=== PATIENT | female | born 1950 | race Caucasian/White ===

== ENCOUNTER → 2017-09-23 15:29 | Outpatient (CLI) | payer MEDICARE, OTHER, SELFPAY ==
[2017-09-23 15:55] LABS: INR 3.5 (0.9-1.3); Prothrombin Time 37.4 SECONDS (10.1-12.7)
== END ==
PROVIDERS: PCP Family Medicine; Visit Provider Family Medicine
DX: Z51.81 Encounter for therapeutic drug level monitoring (principal)
CPT/HCPCS: 36415; 85610

== ENCOUNTER → 2017-10-15 12:48 | Outpatient (CLI) | payer MEDICARE, OTHER, SELFPAY ==
[2017-10-15 13:16] LABS: INR 3.4 (0.9-1.3); Prothrombin Time 36.2 SECONDS (10.1-12.7)
== END ==
PROVIDERS: PCP Family Medicine; Visit Provider Family Medicine
DX: Z51.81 Encounter for therapeutic drug level monitoring (principal); Z79.01 Long term (current) use of anticoagulants
CPT/HCPCS: 36415; 85610

== ENCOUNTER → 2017-11-07 09:15 | Outpatient (CLI) | payer MEDICARE, OTHER, SELFPAY ==
[2017-11-07 10:52] LABS: INR 2.4 (0.9-1.3); Prothrombin Time 27.1 SECONDS (10.1-12.7)
== END ==
PROVIDERS: PCP Family Medicine; Visit Provider Family Medicine
DX: Z51.81 Encounter for therapeutic drug level monitoring (principal)
CPT/HCPCS: 36415; 85610

== ENCOUNTER → 2018-02-06 09:25 | Outpatient (CLI) | payer MEDICARE, OTHER, SELFPAY ==
[2018-02-06 10:19] LABS: INR 2.8 (0.9-1.3); Prothrombin Time 30.8 SECONDS (10.1-12.7)
== END ==
PROVIDERS: PCP Family Medicine; Visit Provider Family Medicine
DX: Z51.81 Encounter for therapeutic drug level monitoring (principal)
CPT/HCPCS: 36415; 85610

== ENCOUNTER → 2018-03-15 09:35 | Outpatient (CLI) | payer MEDICARE, OTHER, SELFPAY ==
--- NOTE | 2018-03-15 | DI.MG.S_ITS ---
BILATERAL DIGITAL SCREENING MAMMOGRAM 3D/2D WITH CAD: 03/15/2018 CLINICAL: Routine screening. Comparison is made to exams dated: 12/23/2016 mammogram, 10/10/2015 mammogram, and 09/17/2014 mammogram - [facility]. There are scattered fibroglandular elements in both breasts. Current study was also evaluated with a Computer Aided Detection (CAD) system. No significant masses, calcifications, or other findings are seen in either breast. There has been no significant interval change. IMPRESSION: NEGATIVE There is no mammographic evidence of malignancy. A 1 year screening mammogram is recommended. This exam was interpreted at Station ID: [id number]. NOTE: For mammograms, a report in lay terms will be sent to the patient. Approximately 15% of breast malignancies will not be visualized mammographically. In the management of a palpable breast mass, a negative mammogram must not discourage biopsy of a clinically suspicious lesion. Electronically Signed By: Omar wolff/shamar:03/15/2018 11:43:26 letter sent: Normal Exam ACR BI-RADS Category 1: Negative 3341F
[2018-03-15 12:14] LABS: Prothrombin Time 60.6 SECONDS (10.1-12.7)
[2018-03-15 12:37] LABS: INR 5.1 (0.9-1.3)
== END ==
PROVIDERS: PCP Family Medicine; Visit Provider Family Medicine
DX: Z12.31 Encounter for screening mammogram for malignant neoplasm of breast (principal); Z51.81 Encounter for therapeutic drug level monitoring
CPT/HCPCS: 36415; 77063; 77067; 85610

== ENCOUNTER → 2018-04-27 11:03 | Outpatient (CLI) | payer MEDICARE, OTHER, SELFPAY ==
[2018-04-27 11:32] LABS: Prothrombin Time 23.5 SECONDS (10.1-12.7)
== END ==
PROVIDERS: PCP Family Medicine; Visit Provider Family Medicine
DX: Z51.81 Encounter for therapeutic drug level monitoring (principal)
CPT/HCPCS: 36415; 85610

== ENCOUNTER → 2018-05-25 14:51 | Outpatient (CLI) | payer MEDICARE, OTHER, SELFPAY ==
[2018-05-25 15:34] LABS: INR 3.8 (0.9-1.3); Prothrombin Time 45.1 SECONDS (10.1-12.7)
== END ==
PROVIDERS: PCP Family Medicine; Visit Provider Family Medicine
DX: Z51.81 Encounter for therapeutic drug level monitoring (principal)
CPT/HCPCS: 36415; 85610

== ENCOUNTER → 2018-06-29 11:22 | Outpatient (CLI) | payer MEDICARE, OTHER, SELFPAY ==
[2018-06-29 12:58] LABS: INR 2.6 (0.9-1.3); Prothrombin Time 30.4 SECONDS (10.1-12.7)
== END ==
PROVIDERS: Family Provider Internal Medicine Endocrinology, Diabetes & Metabolism; PCP Family Medicine; Visit Provider Family Medicine
DX: Z51.81 Encounter for therapeutic drug level monitoring (principal)
CPT/HCPCS: 36415; 85610

== ENCOUNTER → 2018-07-25 11:04 | Outpatient (CLI) | payer MEDICARE, OTHER, SELFPAY ==
[2018-07-25 12:08] LABS: INR 2.3 (0.9-1.3); Prothrombin Time 26.9 SECONDS (10.1-12.7)
== END ==
PROVIDERS: PCP Family Medicine; Visit Provider Family Medicine
DX: Z51.81 Encounter for therapeutic drug level monitoring (principal)
CPT/HCPCS: 36415; 85610

== ENCOUNTER → 2018-09-07 09:07 | Outpatient (CLI) | payer MEDICARE, OTHER, SELFPAY ==
[2018-09-07 10:00] LABS: INR 3.6 (0.9-1.3); Prothrombin Time 42.8 SECONDS (10.1-12.7)
== END ==
PROVIDERS: PCP Family Medicine; Visit Provider Family Medicine
DX: Z51.81 Encounter for therapeutic drug level monitoring (principal)
CPT/HCPCS: 36415; 85610

== ENCOUNTER → 2018-09-25 10:35 | Outpatient (CLI) | payer MEDICARE, OTHER, SELFPAY ==
[2018-09-25 11:57] LABS: INR 3.3 (0.9-1.3); Prothrombin Time 39.7 SECONDS (10.1-12.7)
== END ==
PROVIDERS: PCP Family Medicine; Visit Provider Family Medicine
DX: Z51.81 Encounter for therapeutic drug level monitoring (principal)
CPT/HCPCS: 36415; 85610

== ENCOUNTER → 2018-10-17 08:51 | Outpatient (CLI) | payer MEDICARE, OTHER, SELFPAY ==
[2018-10-17 09:25] LABS: INR 2.6 (0.9-1.3); Prothrombin Time 30.9 SECONDS (10.1-12.7)
== END ==
PROVIDERS: PCP Family Medicine; Visit Provider Family Medicine
DX: Z51.81 Encounter for therapeutic drug level monitoring (principal)
CPT/HCPCS: 36415; 85610

== ENCOUNTER → 2018-11-20 10:29 | Outpatient (CLI) | payer MEDICARE, OTHER, SELFPAY ==
[2018-11-20 11:16] LABS: INR 3.2 (0.9-1.3); Prothrombin Time 37.3 SECONDS (10.1-12.7)
[2018-11-20 11:21] LABS: BUN Creatinine Ratio 22.5 (6-22); Blood Urea Nitrogen 18 mg/dL (7-17); Calcium 10.5 mg/dL (8.4-10.2); Carbon Dioxide 22 mmol/L (22-32); Chloride 110 mmol/L (98-107); Estimated Glomerular Filt Rate > 60.0 mL/min (>60); Glucose 145 mg/dL (80-110); HEMOLYSIS < 15 (0-50); Sodium 143 mmol/L (137-145)
== END ==
PROVIDERS: Family Provider Family Medicine; PCP Family Medicine; Visit Provider Internal Medicine Endocrinology, Diabetes & Metabolism
DX: Z51.81 Encounter for therapeutic drug level monitoring (principal); E87.5 Hyperkalemia
CPT/HCPCS: 36415; 80048; 85610

== ENCOUNTER → 2018-12-21 09:51 | Outpatient (CLI) | payer MEDICARE, OTHER, SELFPAY ==
[2018-12-21 10:28] LABS: INR 3.6 (0.9-1.3); Prothrombin Time 42.2 SECONDS (10.1-12.7)
== END ==
PROVIDERS: PCP Family Medicine; Visit Provider Family Medicine
DX: Z51.81 Encounter for therapeutic drug level monitoring (principal)
CPT/HCPCS: 36415; 85610

== ENCOUNTER → 2019-01-26 14:30 | Outpatient (CLI) | payer MEDICARE, OTHER, SELFPAY ==
[2019-01-26 15:17] LABS: INR 3.7 (0.9-1.3); Prothrombin Time 43.2 SECONDS (10.1-12.7)
== END ==
PROVIDERS: PCP Family Medicine; Visit Provider Family Medicine
DX: Z51.81 Encounter for therapeutic drug level monitoring (principal); R79.1 Abnormal coagulation profile
CPT/HCPCS: 36415; 85610

== ENCOUNTER → 2019-02-12 10:06 | Outpatient (CLI) | payer MEDICARE, OTHER, SELFPAY ==
[2019-02-12 12:20] LABS: INR 1.9 (0.9-1.3)
== END ==
PROVIDERS: PCP Family Medicine; Visit Provider Family Medicine
DX: Z51.81 Encounter for therapeutic drug level monitoring (principal)
CPT/HCPCS: 36415; 85610

== ENCOUNTER 2019-02-14 08:13 | Day surgery (SDC) | payer MEDICARE, OTHER, SELFPAY ==
--- NOTE | 2019-02-10 12:15 | PM.PREOP ---
Pre-operative Note Interval Note History & Physical reviewed/Exam performed by Physician: Yes Changes to H&P: No H&P completed within 30 days and has changed as indicated here:: Patient stable. INR 1.3 with target under 2.3 due to clotting disorder. Fasting glucose is 101 and today's potassium is borderline at 5.1. This is being monitored by her physicians. Surgery will proceed as planned after consuling with anesthesia and the patient.
--- NOTE | 2019-02-10 12:16 | P.OP_ITS ---
Operative Date/Time/Diagnoses Date of procedure: 02/14/19 Time of procedure: 09:45 Procedure & Clinicians Procedure: Preoperative diagnoses: 1. Left significant nuclear sclerotic and cortical cataract 2. Astigmatism which is to be corrected with a toric intraocular lens implant. 3. Diabetes with poor control without retinopathy. 4. 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 5. Recent skin cancer removal left forehead from Mohs procedure. 6. Mild left epiretinal membrane. 7. S/p leg amputation. 8. Poor red reflex due to diffuse cortical anterior cataract requiring complex surgery with capsular dye. Postoperative diagnoses: 1. Complex cataract removal with phacoemulsification with toric posterior chamber intraocular lens implant placed and use of capsular dye. Procedure: Phacoemulsification with posterior chamber toric intraocular lens implant. Surgeon: Lisa Dior MD Complications: None Specimen: None Implant: ZCT 150+20.5 [place] 085. Blood loss: None Anesthesia: Retrobulbar with monitored standby Description of procedure: Patient presents with a complaint of decreased vision due to cataract which is affecting activities of daily living both distance and near and has higher risk of retinopathy due to poorly controlled diabetes. She has multiple medical problems including elevated potassium. This was recheck prior to surgery was 5.18 was felt best to proceed as she had an INR of 1.3 and a glucose fasting of 101. She has of hyper fibrinogen clotting disorder poorly characterized and poorly controlled diabetes. Also necessitating better retinal view. The patient wants surgery to improve vision and astigmatism. Her glucose was checked prior to surgery and was stable and her INR was at goal as she has a clotting disorder cannot be totally removed from anticoagulation with warfarin. The patient was taken to the operating room and proparacaine drops placed. Indelible ink garibay were placed at the 90 and 180 degree meridian. The patient was placed on the operating room table and given IV sedation. The patient had a very prolonged episode of coughing which necessitated several sessions of some suctioning and lidocaine in order to proceed. A retrobulbar block insert consisting of 6 cc of 2% xylocaine without epinephrine mixed half and half with 0.5% Marcaine with 1 cc of hyaluronidase added is placed between the medial and lateral 1/3 of the inferior orbital rim. The eye is manually massaged for 30 sec, prepped using Betadine solution, and draped in the usual sterile fashion. Temporal approach was made, a 1 mm side-port incision was made 90? from the proposed corneal wound. Phenylephrine 1.5% mixed with 1% xylocaine 0.2 cc was placed into the anterior chamber. Viscoat followed by Healon was then placed. An air bubble was placed and then the Visudyne capsular dye was placed into the anterior chamber. It was then irrigated out allowing a improved visibility for capsular rhexis. A 2.6 mm clear incision with a 2.6 mm blade was placed at the 170 degree meridian. A 360 degree capsulorrhexis style capsulotomy was then performed w rhexis ith a cystitome needle on a Healon aided by the capsular dye. Hydrodelineation and hydrodissection were performed. The phacoemulsification unit is introduced, and sculpting used to groove the central lens. It is then removed in chopping mode. Epi nucleus is removed with epinuclear mode and irrigation aspiration was used to remove the peripheral cortex. The posterior capsule is polished. The intraocular lens is selected, inspected, power confirmed, and placed in the posterior chamber at the desired meridian of 85 degrees. The pupil was not constricted. The wound was stromally hydrated and tested for leaks, there was none and it was left sutureless. Vigamox 0.1 cc was placed into the anterior chamber. Kenalog 0.2 cc was placed in the superior subconjunctival space. A drop of antibiotic and was placed and the eye was patched and shielded. The patient was stable and returned to the recovery room in excellent condition. She had some coughing fits at the end of the procedure but not caused any complications. Dictated by: Lisa Dior MD Copy to: [facility]
[2019-02-14] MEDS: PROPARACAINE 0.5% OPHTH SOL 2 DROPS EYE-OP ×2 (09:05→09:49)
[2019-02-14] MEDS: CATARACT EYE COMPOUND (10 DROPS/SYRINGE) 3 DROPS EYE-OP (09:05)
[2019-02-14 09:06] VITALS: BP 127/71; PULSE 71; RESP 16; O2SAT 95
[2019-02-14 09:19] VITALS: BMI 37.1
[2019-02-14 09:36] LABS: Carbon Dioxide 23 mmol/L (22-32); Chloride 107 mmol/L (98-107); HEMOLYSIS < 15 (0-50); Potassium 5.1 mmol/L (3.4-5.1); Sodium 140 mmol/L (137-145)
[2019-02-14] MEDS: LIDOCAINE 2% 4 ML, BUPIVACAINE 0.5% (PF) 4 ML, HYALURONIDASE 150 UNIT INJ (10:00)
[2019-02-14] MEDS: ERYTHROMYCIN OPHTH 1 GM OINT 1 APPLIC EYE-LEFT (10:15)
[2019-02-14] MEDS: HYALURONATE SODIUM 10 MG/ML SYRINGE INJ (10:15)
[2019-02-14] MEDS: TRYPAN BLUE 0.5 ML SYRINGE INJ (10:16)
[2019-02-14] MEDS: PHENYLEPHRINE/LIDOCAINE VIAL (OR) 0.2 ML EYE-OP (10:17)
[2019-02-14] MEDS: TRIAMCINOLONE 50 MG/5 ML VIAL INJ (10:18)
[2019-02-14] MEDS: MOXIFLOXACIN INJ 5 MG/ML VIAL EYE-OP (10:18)
[2019-02-14] MEDS: BALANCED SALT IRRIG SOLN NO.2 500 ML, EPINEPHrine 1 MG IRR (10:19)
[2019-02-14 10:47] VITALS: BP 109/56; PULSE 73; RESP 16; TEMP 36.7; O2SAT 98
== END 2019-02-14 11:01 | disposition home or self-care (01) ==
LOC: OR 08:16
PROVIDERS: Legal Medicine; PCP Family Medicine; Visit Provider Ophthalmology
PROC: (CPT 66982; principal; 2019-02-14 09:45)
DX: H25.812 Combined forms of age-related cataract, left eye (principal); H52.202 Unspecified astigmatism, left eye; E11.9 Type 2 diabetes mellitus without complications; Z79.01 Long term (current) use of anticoagulants
CPT/HCPCS: 66982; 80051; J0171; J2250; J2704; J3301; J3470; V2787

== ENCOUNTER → 2019-02-27 14:00 | Outpatient (CLI) | payer MEDICARE, OTHER, SELFPAY ==
[2019-02-27 14:44] LABS: INR 2.3 (0.9-1.3); Prothrombin Time 26.8 SECONDS (10.1-12.7)
== END ==
PROVIDERS: PCP Family Medicine; Visit Provider Family Medicine
DX: Z51.81 Encounter for therapeutic drug level monitoring (principal)
CPT/HCPCS: 36415; 85610

== ENCOUNTER → 2019-04-19 11:44 | Outpatient (CLI) | payer MEDICARE, OTHER, SELFPAY ==
--- NOTE | 2019-04-19 | DI.MG.S_ITS ---
BILATERAL DIGITAL SCREENING MAMMOGRAM 3D/2D WITH CAD: 04/19/2019 CLINICAL: Routine screening. Comparison is made to exams dated: 03/15/2018 mammogram, 12/23/2016 mammogram, and 10/10/2015 mammogram - [facility]. There are scattered fibroglandular elements in both breasts. Current study was also evaluated with a Computer Aided Detection (CAD) system. No significant masses, calcifications, or other findings are seen in either breast. There has been no significant interval change. IMPRESSION: NEGATIVE There is no mammographic evidence of malignancy. A 1 year screening mammogram is recommended. This exam was interpreted at Station ID: [id number]. NOTE: For mammograms, a report in lay terms will be sent to the patient. Approximately 15% of breast malignancies will not be visualized mammographically. In the management of a palpable breast mass, a negative mammogram must not discourage biopsy of a clinically suspicious lesion. Electronically Signed By: Omar wolff/shamar:04/19/2019 14:21:08 letter sent: Normal Exam ACR BI-RADS Category 1: Negative 3341F
== END ==
PROVIDERS: PCP Family Medicine; Visit Provider Family Medicine
DX: Z12.31 Encounter for screening mammogram for malignant neoplasm of breast (principal)
CPT/HCPCS: 77063; 77067

== ENCOUNTER → 2020-05-05 09:27 | Outpatient (CLI) | payer MEDICARE, OTHER, SELFPAY ==
[2020-05-05 11:26] LABS: COVID19 -Nasal RAPID Negative (Negative)
== END ==
PROVIDERS: PCP Family Medicine; Visit Provider Physician Assistant
DX: Z20.822 Contact with and (suspected) exposure to COVID-19 (principal)
CPT/HCPCS: 87635; C9803

== ENCOUNTER 2020-05-07 06:16 | Day surgery (SDC) | payer MEDICARE, OTHER, SELFPAY ==
--- NOTE | 2020-05-06 17:05 | PM.PREOP ---
Pre-operative Note COVID-19 COVID-19 status: Negative Interval Note History & Physical reviewed/Exam performed by Physician: Yes Changes to H&P: No H&P completed within 30 days and has changed as indicated here:: Fasting glucose is 94, INR is 2.5 after reducing her dose. Therefore after discussion the original mask airway is suggested to reduce bleeding risk.
[2020-05-07] MEDS: PROPARACAINE 0.5% OPHTH SOL 2 DROPS EYE-OP (07:06)
[2020-05-07 07:08] VITALS: BP 128/66; PULSE 81; RESP 12; TEMP 36.4; O2SAT 97; BMI 38.6
--- NOTE | 2020-05-07 07:14 | PM.OP.1 ---
Operative Date/Time/Diagnoses Date of procedure: 05/07/20 Time of procedure: 07:45 Procedure & Clinicians Procedure: Preoperative diagnoses: 1. Right complex surgery with use of capsular dye. 2. Mature or advanced nuclear sclerotic and cortical cataract with poor visibility of the anterior capsule increasing surgical risks of complications. 3. Clotting disorder with elevated INR of 2.5. 4. Diabetes without retinopathy 5. Hypertension. Postoperative diagnoses: 1. Complex surgery with use of capsular dye, 2. Placement of a posterior chamber intraocular lens implant. Surgeon: Lisa Dior MD Complications: none Specimen: None Implant: ZCBOO+21.0 Blood loss: None Anesthesia: Retrobulbar with monitored standby. Description of procedure: Dictated by: Lisa Dior MD Post operative diagnoses: 1. Right cataract removed with use of capsular dye . Laryngeal mask airway due to anticoagulation status. 2. Placement of a posterior chamber intraocular lens. Procedure: Phacoemulsification with posterior chamber intraocular lens implant Surgeon: Lisa Dior MD Blood loss: None Anesthesia: Retrobulbar with monitored standby Description of procedure: Patient has presented with decreased vision due to cataract which is affecting activities of daily living. Her cataracts advanced is affecting both distance and reading. She will need capsular dye for better visibility she is a diabetic with fasting glucose 94. She has a clotting disorder and cannot be anticoagulated her INR is 2.5 so it is felt best to use laryngeal mask airway. Topical anesthesia was also given as an option. She understands the extra risk of operating during the COVID-19 epidemic and wishes to proceed. She has tested COVID-19 negative prior to surgery. . The patient wants surgery to improve vision. The patient was taken to the operating room and given IV sedation. A laryngeal mask airway was placed without difficulty. The eye is manually massaged for 30 sec, prepped using Betadine solution, and draped in the usual sterile fashion. Temporal approach was made, a 1 mm side-port incision was performed 90 degrees from the planned corneal wound. Phenylephrine 1.5% mixed with 1% xylocaine 0.2 cc was placed into the anterior chamber. An air bubble was placed and Visudyne dye was placed to improve visibility of the anterior capsule. The dye was irrigated out to reduce bubbles.Viscoat followed by Healon was then placed. A 2.6 mm clear incision with a 2.6 mm blade was placed. A 360 degree capsulorrhexis style capsulotomy was then performed with a cystitome needle on a Healon. This was greatly aided by the capsular dye as she had complete cortical opacity of the posterior capsule. Hydrodelineation and hydrodissection were performed. The phacoemulsification unit is introduced, and sculpting used to groove the central lens. It is then removed in chopping mode. Epi nucleus is removed with epinuclear mode and irrigation aspiration was used to remove the peripheral cortex. The posterior capsule is polished. The intraocular lens is selected, inspected, power confirmed, and placed in the posterior chamber. The pupil was not constricted with Miostat. The wound was stromally hydrated and tested for leaks, there was none and was left sutureless. Vigamox 0.1 cc was placed into the anterior chamber. Kenalog 0.2 cc was placed in the inferior subconjunctival space. A drop of antibiotic and was placed and the eye was patched and shielded. The patient was stable and returned to the recovery room in excellent condition. Dictated by: Lisa Dior MD Copy to: [facility] Same procedure as scheduled: Yes
[2020-05-07] MEDS: CATARACT EYE COMPOUND (10 DROPS/SYRINGE) 3 DROPS EYE-OP (07:25)
[2020-05-07] MEDS: LACTATED RINGERS 1,000 ML 42 ML IV (07:33)
[2020-05-07] MEDS: CHONDROIDTIN/SOD HYALURONATE 1.05 ML SYRINGE INTRAOCULA (08:13)
[2020-05-07] MEDS: ERYTHROMYCIN OPHTH 1 GM OINT 1 APPLIC EYE-RIGHT (08:13)
[2020-05-07] MEDS: HYALURONATE SODIUM 10 MG/ML SYRINGE INJ (08:13)
[2020-05-07] MEDS: PHENYLEPHRINE/LIDOCAINE VIAL (OR) 0.2 ML EYE-OP (08:14)
[2020-05-07] MEDS: TRYPAN BLUE 0.5 ML SYRINGE INJ (08:14)
[2020-05-07] MEDS: TRIAMCINOLONE 50 MG/5 ML VIAL INJ (08:14)
[2020-05-07] MEDS: MOXIFLOXACIN INJ 5 MG/ML VIAL EYE-OP (08:14)
[2020-05-07] MEDS: BALANCED SALT IRRIG SOLN NO.2 500 ML, EPINEPHrine 1 MG IRR (08:15)
[2020-05-07 08:39] VITALS: BP 106/47; PULSE 78; RESP 18; TEMP 36.6; O2SAT 92
[2020-05-07 08:44] VITALS: BP 101/43; PULSE 75; RESP 10; O2SAT 94
[2020-05-07 08:49] VITALS: BP 107/45; PULSE 74; RESP 22; O2SAT 94
[2020-05-07 08:54] VITALS: BP 110/45; PULSE 72; RESP 16; TEMP 36.3; O2SAT 94
--- NOTE | 2020-05-07 09:01 | SUR.PHASEII ---
Patient informed that she could resume her normal dose of coumadin today.
== END 2020-05-07 09:02 | disposition home or self-care (01) ==
PROVIDERS: PCP Family Medicine; Referring Provider Family Medicine; Visit Provider Ophthalmology
PROC: (CPT 66982; principal; 2020-05-07 07:45)
DX: H25.811 Combined forms of age-related cataract, right eye (principal); E11.9 Type 2 diabetes mellitus without complications; I10 Essential (primary) hypertension; Z79.01 Long term (current) use of anticoagulants; Z79.84 Long term (current) use of oral hypoglycemic drugs
CPT/HCPCS: 66982; 82962; 85610; J0171; J2704; J3010; J3301; J3470

== ENCOUNTER → 2020-05-13 10:39 | Outpatient (CLI) | payer MEDICARE, OTHER, SELFPAY ==
--- NOTE | 2020-05-13 | DI.MG.S_ITS ---
BILATERAL DIGITAL SCREENING MAMMOGRAM 3D/2D WITH CAD: 05/13/2020 CLINICAL: Routine screening. Comparison is made to exams dated: 04/19/2019 mammogram, 03/15/2018 mammogram, and 12/23/2016 mammogram - [facility]. There are scattered fibroglandular elements in both breasts. Current study was also evaluated with a Computer Aided Detection (CAD) system. There is a benign area of fat necrosis in the right breast. No significant masses, calcifications, or other findings are seen in either breast. There has been no significant interval change. IMPRESSION: BENIGN There is no mammographic evidence of malignancy. A 1 year screening mammogram is recommended. This exam was interpreted at Station ID: [id number]. NOTE: For mammograms, a report in lay terms will be sent to the patient. Approximately 15% of breast malignancies will not be visualized mammographically. In the management of a palpable breast mass, a negative mammogram must not discourage biopsy of a clinically suspicious lesion. Electronically Signed By: Omar wolff/shamar:05/13/2020 15:16:20 letter sent: Normal Exam ACR BI-RADS Category 2: Benign Finding(s) 3342F
== END ==
PROVIDERS: PCP Family Medicine; Referring Provider Family Medicine; Visit Provider Family Medicine
DX: Z12.31 Encounter for screening mammogram for malignant neoplasm of breast (principal)
CPT/HCPCS: 77063; 77067

== ENCOUNTER → 2021-05-25 15:22 | Outpatient (CLI) | payer MEDICARE, OTHER, SELFPAY ==
--- NOTE | 2021-05-25 15:25 | DI.MG.S_ITS ---
BILATERAL DIGITAL SCREENING MAMMOGRAM 3D/2D WITH CAD: 05/25/2021 CLINICAL: Routine screening. Comparison is made to exams dated: 05/13/2020 mammogram, 04/19/2019 mammogram, and 03/15/2018 mammogram - [facility]. There are scattered fibroglandular elements in both breasts. Current study was also evaluated with a Computer Aided Detection (CAD) system. There is a benign area of fat necrosis in the right breast. No significant masses, calcifications, or other findings are seen in either breast. There has been no significant interval change. IMPRESSION: BENIGN There is no mammographic evidence of malignancy. A 1 year screening mammogram is recommended. This exam was interpreted at Station ID: [id number]. NOTE: For mammograms, a report in lay terms will be sent to the patient. Approximately 15% of breast malignancies will not be visualized mammographically. In the management of a palpable breast mass, a negative mammogram must not discourage biopsy of a clinically suspicious lesion. Electronically Signed By: Douglas Graves acr/shamar:05/26/2021 09:09:13 letter sent: Normal Exam ACR BI-RADS Category 2: Benign Finding(s) 3342F
== END ==
PROVIDERS: PCP Family Medicine; Referring Provider Family Medicine; Visit Provider Family Medicine
DX: Z12.31 Encounter for screening mammogram for malignant neoplasm of breast (principal)
CPT/HCPCS: 77063; 77067

== ENCOUNTER → 2022-07-16 12:37 | Outpatient (CLI) | payer MEDICARE, OTHER, SELFPAY ==
--- NOTE | 2022-07-16 | DI.MG.S_ITS ---
BILATERAL DIGITAL SCREENING MAMMOGRAM 3D/2D WITH CAD: 07/16/2022 CLINICAL: Routine screening. Comparison is made to exams dated: 05/25/2021 mammogram, 05/13/2020 mammogram, and 04/19/2019 mammogram - [facility]. There are scattered areas of fibroglandular density in both breasts (category b / 25%-50% glandular tissue). Current study was also evaluated with a Computer Aided Detection (CAD) system. There is a benign area of fat necrosis in the right breast. No significant masses, calcifications, or other findings are seen in either breast. There has been no significant interval change. IMPRESSION: BENIGN There is no mammographic evidence of malignancy. A 1 year screening mammogram is recommended. Based on the Tyrer Cuzick model (a risk assessment model) the patient's lifetime risk is 1.8% and her 10 year risk is 1.5%. According to the ACR, ACS, and NCCN guidelines, an annual breast MRI exam along with mammogram is recommended if the patient's lifetime risk is 20% or greater. This exam was interpreted at Station ID: [id number]. NOTE: For mammograms, a report in lay terms will be sent to the patient. Approximately 15% of breast malignancies will not be visualized mammographically. In the management of a palpable breast mass, a negative mammogram must not discourage biopsy of a clinically suspicious lesion. Electronically Signed By: Casper lu/shamar:07/16/2022 13:32:33 letter sent: Normal Exam ACR BI-RADS Category 2: Benign Finding(s) 3342F
== END ==
PROVIDERS: PCP Family Medicine; Referring Provider Family Medicine; Visit Provider Family Medicine
DX: Z12.31 Encounter for screening mammogram for malignant neoplasm of breast (principal)
CPT/HCPCS: 77063; 77067